=== PATIENT | female | born 1935 | race Caucasian/White ===

== ENCOUNTER 2018-06-25 16:34 | Observation (INO) | payer SELFPAY ==
[2018-06-25 16:35] VITALS: BMI 35.2
[2018-06-25 17:11] LABS: BASO # 0.02 K/mm3 (0.0-2.0); BASO % 0.4 % (0.0-3.0); EOS # 0.1 (0.0-0.7); EOS % 2.7 % (1.5-5.0); GRAN % 36.3 % (50.0-68.0); HEMOGLOBIN 11.4 g/dL (12.0-16.0); LYMPH # 2.7 (1.2-3.4); MEAN CELL VOLUME 88.7 fl (80.0-105.0); MEAN CORPUSCULAR HEMOGLOBIN 28.7 pg (25.0-35.0); MEAN CORPUSCULAR HGB CONC 32.4 g/dl (31.0-37.0); MONO # 0.5 (0.1-0.6); MONO % 9.6 % (1.0-6.0); PLATELET COUNT 173 10^3/uL (120.0-450.0); RBC 3.97 10^6/uL (3.5-6.1); RED CELL DISTRIBUTION WIDTH 13.5 % (11.5-14.5); WHITE BLOOD COUNT 5.2 10^3/uL (4.5-11.0)
[2018-06-25] MEDS ORDERED: Sodium Chloride 0.9% 1,000 ML IV STA (17:13)
[2018-06-25 17:19] LABS: INR 1.13; PROTHROMBIN TIME 12.9 SECONDS (9.4-12.5)
--- NOTE | 2018-06-25 17:53 | RAD ---
Date of service: 06/25/2018 HISTORY: SOB COMPARISON: 08/06/2016 FINDINGS: LUNGS: No active pulmonary disease. PLEURA: No significant pleural effusion identified, no pneumothorax apparent. CARDIOVASCULAR: Atherosclerotic calcifications identified primarily aortic arch. No radiographic findings to suggest acute or significant cardiovascular disease. OSSEOUS STRUCTURES: No significant abnormalities. VISUALIZED UPPER ABDOMEN: Normal. OTHER FINDINGS: None. IMPRESSION: No active disease. No significant interval change compared to the prior examination(s).
[2018-06-25 17:54] VITALS: RESP 18
[2018-06-25 17:58] LABS: ALB/GLOB RATIO 1.1 (1.1-1.8); ALBUMIN 3.5 g/dL (3.0-4.8); CALCIUM 9.8 mg/dL (8.4-10.5)
[2018-06-25 18:12] LABS: TROPONIN I 0.01 ng/mL
[2018-06-25] MEDS ORDERED: Iohexol 350 MG/100 ML VIAL ONE (18:23)
--- NOTE | 2018-06-25 19:18 | CARD ---
APPROVED REPORT Date of service: 06/25/2018 EKG Measurement Heart [id number] <Conclusion> Marked sinus bradycardia Left anterior fascicular block Left ventricular hypertrophy with QRS widening Cannot rule out Septal infarct, age undetermined Abnormal ECG
[2018-06-25 19:20] VITALS: TEMP 98.4
--- NOTE | 2018-06-25 19:48 | ED PDOC ---
Arrival/HPI - General Chief Complaint: Shortness Of Breath - History of Present Illness Narrative History of Present Illness (Text): 06/25/18 19:37 82 year old female with PMH of hypertension presents to the Emergency department with daughter complaining of shortness of breath and chest pain x 30 minutes. Per daughter, pt was at home when she had an episode of lightheadedness, with associated chest pain and difficulty breathing. Describes the CP as substernal and sharp. The lightheadedness subsided within a minute, but the shortness of breath and chest pain continued until arrival to the Emergency Department. Shortness of breath does not change with position. Associated symptoms of nausea and generalized abdominal pain, which daughter states is chronic. Pt did not take any medications for symptoms and did not take her beta manda today. Denies vision changes, headache, syncope, palpitations, diaphoresis, neck pain, jaw pain, cough, nasal congestion, vomiting, urinary symptoms, difficulty speaking or ambulating, weakness, numbness, paresthesias. Past Medical History - Provider Review Nursing Documentation Reviewed: Yes - Infectious Disease Hx of Infectious Diseases: None - Tetanus Immunization Tetanus Immunization: Unknown - Cardiac Hx Hypertension: Yes Other/Comment: cardiac problem - Pulmonary Hx Respiratory Disorders: No - Neurological Hx Neurological Disorder: No - HEENT Hx HEENT Disorder: No - Renal Hx Renal Disorder: No - Endocrine/Metabolic Hx Endocrine Disorders: No - Hematological/Oncological Hx Blood Disorders: No - Integumentary Hx Dermatological Disorder: No - Musculoskeletal/Rheumatological Hx Musculoskeletal Disorders: No - Gastrointestinal Hx Gastrointestinal Disorders: No - Genitourinary/Gynecological Hx Genitourinary Disorders: No - Psychiatric Hx Psychophysiologic Disorder: No Hx Substance Use: No - Surgical History Other/Comment: left breast CA - Anesthesia Hx Anesthesia: No Hx Anesthesia Reactions: No Hx Malignant Hyperthermia: No Family/Social History - Physician Review Nursing Documentation Reviewed: Yes Family/Social History: No Known Family HX Smoking Status: Never Smoked Hx Alcohol Use: No Hx Substance Use: No Allergies/Home Meds Allergies/Adverse Reactions: Allergies No Known Allergies Allergy (Verified 07/12/16 15:52) Home Medications: Home Meds Medication Instructions Recorded Confirmed Bisocard 5 mg PO DAILY 06/11/16 07/12/16 Concor 10 mg PO HS 06/11/16 07/12/16 Coveram 5 mg PO DAILY 06/11/16 07/12/16 Napizol 20 mg pe PO BID 06/11/16 07/12/16 Review of Systems - Physician Review All systems were reviewed & negative as marked: Yes - Review of Systems Constitutional: Normal Eyes: Normal. absent: Vision Changes ENT: Normal Respiratory: SOB. absent: Cough Cardiovascular: Chest Pain, Edema. absent: Palpitations, Syncope Gastrointestinal: Abdominal Pain, Nausea. absent: Stool Changes, Constipation, Diarrhea, Vomiting, Appetite Changes Genitourinary Female: Normal. absent: Dysuria, Frequency Musculoskeletal: Normal. absent: Arthralgias, Back Pain, Neck Pain Skin: Normal Neurological: Dizziness. absent: Headache, Focal Weakness, Gait Changes, Speech Changes, Facial Droop, Disequilibrium, Seizure Hemo/Lymphatic: Normal Psychiatric: Normal Physical Exam Vital Signs Reviewed: Yes (initial evaluation of patient, hypotension and bradycardia 40-50bpm) Vital Signs Temp Pulse Resp BP Pulse Ox 06/25/18 19:19 49 L 18 167/74 H 96 06/25/18 16:56 18 06/25/18 16:35 98.4 F 85 18 86/48 L 97 Temperature: Afebrile Blood Pressure: Hypotensive Pulse: Bradycardic Respiratory Rate: Normal Appearance: Positive for: Non-Toxic, Uncomfortable Pain Distress: Mild Mental Status: Positive for: Alert and Oriented X 3 - Systems Exam Head: Present: Atraumatic, Normocephalic Pupils: Present: PERRL Extroacular Muscles: Present: EOMI Conjunctiva: Present: Normal Mouth: Present: Moist Mucous Membranes Neck: Present: Normal Range of Motion Respiratory/Chest: Present: Clear to Auscultation, Good Air Exchange, Other (patient speaking in full sentences). No: Respiratory Distress, Accessory Muscle Use, Rales, Rhonchi, Tachypneic, Tender to Palpation Cardiovascular: Present: Normal S1, S2, Peripheal Pulses Present, Bradycardic. No: Murmurs Abdomen: Present: Tenderness (generalized), Normal Bowel Sounds, Guarding. No: Distention, Peritoneal Signs Back: Present: Normal Inspection. No: CVA Tenderness, Paraspinal Tenderness Upper Extremity: Present: Normal Inspection, Normal ROM, NORMAL PULSES, Neurova scularly Intact, Capillary Refill < 2s. No: Cyanosis, Edema, Tenderness, Swelling Lower Extremity: Present: Normal Inspection, NORMAL PULSES, Normal ROM, Tenderness (ankle bilaterally over edema), Swelling (bilateral pitting edema, per baseline according to patient), Neurovascularly Intact, Capillary Refill < 2 s. No: Edema, CALF TENDERNESS, Erythema, Deformity, Temperature Abnormalties Neurological: Present: GCS=15, CN II-XII Intact, Speech Normal, Motor Func Grossly Intact, Normal Sensory Function, Gait Normal (ambulating with steady gait) Skin: Present: Warm, Dry, Normal Color. No: Rashes Psychiatric: Present: Alert, Oriented x 3, Normal Insight, Normal Concentration, Normal Affect, Normal Mood. No: Lethargic Medical Decision Making ED Course and Treatment: 06/25/18 16:45 Initial Plan: * EKG * Chest X-ray * Cardiac Iso * D-dimer * BNP * CBC, CMP, Lipase * CT Abd/Pelvis * IVF * ASA EKG: rate 46; sinus bradycardia; normal intervals; no ST elevations or other findings concerning for acute ischemia Read by Dr. Norman, viewed by me. Case discussed with Dr. Norman, who agrees with plan of care. Chest X-ray: no active disease, no change from prior XR in 2016 D-dimer elevated, will get CTA chest to r/o PE. CBC: hgb 11.4, otherwise wnl CMP: BUN 23, Creatinine 1.3, otherwise wnl BNP: 1220 Cardiac Iso: negative Stopped IVF after approximately 600cc 06/25/18 19:00 Patient denies any physical symptoms, would like to be discharged home. Educated patient on purpose of workup and proposed plan for overnight observation. Patien t and family agree with plan and now wish to stay for imaging. Patient able to stand and ambulate without dizziness. Lungs continue to be clear to auscultation. 06/25/18 19:58 Pt endorsed to MARIUM Helms, who will take over patient management and disposition. Patient and family aware of change in care. Pending imaging and disposition. - Lab Interpretations Lab Results: 06/25/18 17:04 06/25/18 17:40 Lab Results 06/25/18 17:40: Sodium 140, Potassium 4.2, Chloride 108 H, Carbon Dioxide 24, Anion Gap 13, BUN 23 H, Creatinine 1.3 H, Est GFR ( Amer) 47, Est GFR (Non-Af Amer) 39, Random Glucose 110, Calcium 9.8, Magnesium 1.9, Total Bilirubin 0.3, AST 22, ALT 17, Alkaline Phosphatase 51, Lactate Dehydrogenase 370, Total Creatine Kinase 35, Troponin I 0.01, NT-Pro-B Natriuret Pep 1220 H, Total Protein 6.7, Albumin 3.5, Globulin 3.3, Albumin/Globulin Ratio 1.1, Lipase 211 06/25/18 17:04: PT 12.9 H, INR 1.13, APTT 27.0, D-Dimer, Quantitative 632 H 06/25/18 17:04: WBC 5.2, RBC 3.97, Hgb 11.4 L, Hct 35.2 L, MCV 88.7, MCH 28.7, MCHC 32.4, RDW 13.5, Plt Count 173, Gran % 36.3 L, Lymph % (Auto) 51.0 H, [place] % (Auto) 9.6 H, Eos % (Auto) 2.7, Baso % (Auto) 0.4, Gran # 1.90, Lymph # (Auto) 2.7, [place] # (Auto) 0.5, Eos # (Auto) 0.1, Baso # (Auto) 0.02 - RAD Interpretation Radiology Orders: 06/25/18 16:59 CXR [CHEST PORTABLE] [RAD] Stat 06/25/18 17:30 ANGIO CHEST PE PROTOCOL [CT] Stat 06/25/18 17:31 ABD & PELVIS IV CONTRAST ONLY [CT] Stat - Medication Orders Current Medication Orders: Discontinued Medications Aspirin (Aspirin) 325 mg PO STAT STA Stop: 06/25/18 17:29 Last Admin: 06/25/18 18:42 Dose: 325 mg Sodium Chloride (Sodium Chloride 0.9%) 1,000 mls @ 999 mls/hr IV .Q1H1M STA Stop: 06/25/18 18:13 Last Admin: 06/25/18 17:41 Dose: 999 mls/hr eMAR Start Stop Document 06/25/18 17:41 EQ (Rec: 06/25/18 17:42 EQ [id number]) Intravenous Solution Start Date 06/25/18 Start Time 17:42 NIHSS Scale (Mitchells) Time Performed: 16:45 - How Severe is the Stoke Baseline Level of Consciousness: 0=Alert LOC to Questions: 0=Both comments correct LOC to commands: 0=Obeys both correctly Best Gaze: 0=Normal Visual: 0=No visual loss Facial: 0=Normal Motor Arm - Left: 0=No drift Motor Arm - Right: 0=No drift Motor Leg - Left: 0=No drift Motor Leg - Right: 0=No drift Limb Ataxia: 0=Absent Sensory: 0=Normal Best Language: 0=No aphasia Dysarthia: 0=Normal articulation Extinction & Inattention (Neglect): 0=Normal, no object Score: 0 Risk Level: No Stroke Risk Disposition/Present on Arrival - Present on Arrival Any Indicators Present on Arrival: No History of DVT/PE: No History of Uncontrolled Diabetes: No Urinary Catheter: No History of Decub. Ulcer: No History Surgical Site Infection Following: None - Disposition Have Diagnosis and Disposition been Completed?: No Diagnosis: Shortness of breath, Chest pain Disposition Time: 20:00 Patient Problems: Current Active Problems Problem Status Onset Chest pain Acute Shortness of breath Acute Condition: STABLE
--- NOTE | 2018-06-25 22:26 | ED PDOC ---
Physical Exam Vital Signs Reviewed: Yes Vital Signs Temp Pulse Resp BP Pulse Ox 06/25/18 20:06 54 L 18 174/78 H 96 06/25/18 19:19 49 L 18 167/74 H 96 06/25/18 16:56 18 06/25/18 16:35 98.4 F 85 18 86/48 L 97 Temperature: Afebrile Blood Pressure: Hypotensive Pulse: Regular Respiratory Rate: Normal Appearance: Positive for: Well-Appearing, Non-Toxic, Comfortable Pain Distress: None Mental Status: Positive for: Alert and Oriented X 3 Medical Decision Making ED Course and Treatment: 06/25/18 22:24 Case was endorsed to me by MARIUM Dawkins at [address] chest and CT A/P. CT Angio reviewed, shows: IMPRESSION: 1. There is motion artifact 2. A pulmonary embolism is not identified 3. There are no parenchymal masses or pleural effusions. No calcified pleural plaques. No infiltrates. 4. The heart is enlarged. 5. There is a curvature of the thoracic spine with convexity towards the left. 6. Degenerative changes of thoracic spine. CT Abd/Pelvis reviewed, shows: IMPRESSION: 1. Atrophic left kidney with 1.9 cm cyst with partially enhancing wall. 2. Several small right renal cysts 3. No hydronephrosis 4. Severely limited study secondary to motion artifact 5. The pancreas is suboptimally visualized 6. Liver and spleen unremarkable. 7. Nonobstructive bowel gas pattern. 8. No free pelvic fluid. 9. The pulmonary bases are well aerated. 10. The heart is enlarged. On reevaluation, patient remains awake and alert, in no acute distress, laying comfortably, has no complaints of CP, SOB or abdominal pain at this time. Diagnostic results d/w the patient's family and plan for observation discussed with them, which they agree to. Case d/w medical liaison and with Dr. Villa, they agree with plan for observation under the hospitalist service. - Lab Interpretations Lab Results: 06/25/18 17:04 06/25/18 17:40 Lab Results 06/25/18 17:40: Sodium 140, Potassium 4.2, Chloride 108 H, Carbon Dioxide 24, Anion Gap 13, BUN 23 H, Creatinine 1.3 H, Est GFR ( Amer) 47, Est GFR (Non-Af Amer) 39, Random Glucose 110, Calcium 9.8, Magnesium 1.9, Total Bilirubin 0.3, AST 22, ALT 17, Alkaline Phosphatase 51, Lactate Dehydrogenase 370, Total Creatine Kinase 35, Troponin I 0.01, NT-Pro-B Natriuret Pep 1220 H, T otal Protein 6.7, Albumin 3.5, Globulin 3.3, Albumin/Globulin Ratio 1.1, Lipase 211 06/25/18 17:04: PT 12.9 H, INR 1.13, APTT 27.0, D-Dimer, Quantitative 632 H 06/25/18 17:04: WBC 5.2, RBC 3.97, Hgb 11.4 L, Hct 35.2 L, MCV 88.7, MCH 28.7, MCHC 32.4, RDW 13.5, Plt Count 173, Gran % 36.3 L, Lymph % (Auto) 51.0 H, [place] % (Auto) 9.6 H, Eos % (Auto) 2.7, Baso % (Auto) 0.4, Gran # 1.90, Lymph # (Auto) 2.7, [place] # (Auto) 0.5, Eos # (Auto) 0.1, Baso # (Auto) 0.02 - RAD Interpretation Radiology Orders: 06/25/18 16:59 CXR [CHEST PORTABLE] [RAD] Stat 06/25/18 17:30 ANGIO CHEST PE PROTOCOL [CT] Stat 06/25/18 17:31 ABD & PELVIS IV CONTRAST ONLY [CT] Stat - Medication Orders Current Medication Orders: Discontinued Medications Aspirin (Aspirin) 325 mg PO STAT STA Stop: 06/25/18 17:29 Last Admin: 06/25/18 18:42 Dose: 325 mg Sodium Chloride (Sodium Chloride 0.9%) 1,000 mls @ 999 mls/hr IV .Q1H1M STA Stop: 06/25/18 18:13 Last Admin: 06/25/18 17:41 Dose: 999 mls/hr eMAR Start Stop Document 06/25/18 17:41 EQ (Rec: 06/25/18 17:42 EQ [id number]) Intravenous Solution Start Date 06/25/18 Start Time 17:42 - PA / MANAGER ASSEMBLY / Resident Statement MD/DO has reviewed & agrees with the documentation as recorded. - Scribe Statement The provider has reviewed the documentation as recorded by the Aide Villarreal All medical record entries made by the Aide were at my direction and personally dictated by me. I have reviewed the chart and agree that the record accurately reflects my personal performance of the history, physical exam, medical decision making, and the department course for this patient. I have also personally directed, reviewed, and agree with the discharge instructions and disposition. Disposition/Present on Arrival - Present on Arrival Any Indicators Present on Arrival: No History of DVT/PE: No History of Uncontrolled Diabetes: No Urinary Catheter: No History of Decub. Ulcer: No History Surgical Site Infection Following: None - Disposition Have Diagnosis and Disposition been Completed?: Yes Diagnosis: Shortness of breath, Chest pain Disposition: HOSPITALIZED Disposition Time: 22:31 Patient Plan: Observation Patient Problems: Current Active Problems Problem Status Onset Chest pain Acute Shortness of breath Acute Condition: STABLE
[2018-06-25 23:35] VITALS: BP 142/92; PULSE 61
[2018-06-25 23:36] VITALS: O2SAT 96
[2018-06-25] MEDS ORDERED: Sodium Chloride 0.9% 1,000 ML IV SCH (23:45)
[2018-06-25] MEDS ORDERED: Nitroglycerin 2% Ointment Foilpak UD TOP STA (23:55)
--- NOTE | 2018-06-26 01:49 | CP.PCM.HP ---
<Luis Carlos Malone - Last Filed: 06/26/18 02:14> History of Present Illness - History of Present Illness History of Present Illness: Luis Carlos Malone PGY1 History and Physical for Dr Villa Pt is a 82 yo female with a PMH of HTN, breast cancer, who presents to the ED complaining of SOB and chest pain which started prior to arrival and lasted about 10mins. Per daughter, pt was at home when she had an episode of lightheadedness, with associated chest pain and difficulty breathing. Pt describes the chest pain as substernal and pressure like 10/10 pain. She did not try anything to help relieve the pain. The lightheadedness subsided within a minute, but the shortness of breath and chest pain continued until arrival to the Emergency Department. Shortness of breath or chest pain does not change with position and came on at rest. Associated symptoms of nausea and generalized abdominal pain, which daughter states is chronic. A 12 point ROS was obtained and added to the HPI where appropriate. PMH: HTN, Left breast cancer, B/L knee arthritis PMH: Surgery for left breast cancer FH: mother at 90. father at 70 SH: Denies smoking, ETOH, drug abuse history PMD: Denies Allergies: Denies Present on Admission - Present on Admission Any Indicators Present on Admission: No Past Patient History - Infectious Disease Hx of Infectious Diseases: None - Tetanus Immunizations Tetanus Immunization: Unknown - Past Medical History & Family History Past Medical History?: Yes - Past Social History Smoking Status: Never Smoked - CARDIAC Hx Hypertension: Yes Other/Comment: cardiac problem - PULMONARY Hx Respiratory Disorders: No - NEUROLOGICAL Hx Neurological Disorder: No - HEENT Hx HEENT Problems: No - RENAL Hx Chronic Kidney Disease: No - ENDOCRINE/METABOLIC Hx Endocrine Disorders: No - HEMATOLOGICAL/ONCOLOGICAL Hx Blood Disorders: No - INTEGUMENTARY Hx Dermatological Problems: No - MUSCULOSKELETAL/RHEUMATOLOGICAL Hx Musculoskeletal Disorders: No - GASTROINTESTINAL Hx Gastrointestinal Disorders: No - GENITOURINARY/GYNECOLOGICAL Hx Genitourinary Disorders: No - PSYCHIATRIC Hx Psychophysiologic Disorder: No Hx Substance Use: No - SURGICAL HISTORY Other/Comment: left breast CA - ANESTHESIA Hx Anesthesia: No Hx Anesthesia Reactions: No Hx Malignant Hyperthermia: No Meds Allergies/Adverse Reactions: Allergies Allergy/AdvReac Type Severity Reaction Status Date / Time No Known Allergies Allergy Verified 07/12/16 15:52 Physical Exam - Constitutional Appears: Non-toxic, No Acute Distress - Head Exam Head Exam: ATRAUMATIC, NORMAL INSPECTION, NORMOCEPHALIC - Eye Exam Eye Exam: EOMI - ENT Exam ENT Exam: Mucous Membranes Moist - Respiratory Exam Respiratory Exam: Clear to Auscultation Bilateral, Respiratory Distress, NORMAL BREATHING PATTERN. absent: Accessory Muscle Use, Wheezes - Cardiovascular Exam Cardiovascular Exam: RRR, +S1, +S2. absent: Diastolic murmur, Systolic Murmur - GI/Abdominal Exam GI & Abdominal Exam: Normal Bowel Sounds, Soft - Extremities Exam Extremities exam: Positive for: full ROM, normal inspection, pedal edema, pedal pulses present. Negative for: calf tenderness - Neurological Exam Neurological exam: Alert, Oriented x3 - Psychiatric Exam Psychiatric exam: Normal Affect, Normal Mood - Skin Skin Exam: Dry, Intact, Warm Results - Vital Signs Recent Vital Signs: Last Vital Signs Temp 98.4 F 06/25/18 16:35 Pulse 61 06/25/18 22:00 Resp 18 06/25/18 22:00 BP 142/92 H 06/25/18 22:00 Pulse Ox 96 06/25/18 22:00 - Labs Result Diagrams: 06/25/18 17:04 06/25/18 17:40 Labs: Laboratory Results - last 24 hr 06/25/18 06/25/18 06/25/18 17:04 17:04 17:40 WBC 5.2 RBC 3.97 Hgb 11.4 L Hct 35.2 L MCV 88.7 MCH 28.7 MCHC 32.4 RDW 13.5 Plt Count 173 Gran % 36.3 L Lymph % (Auto) 51.0 H [place] % (Auto) 9.6 H Eos % (Auto) 2.7 Baso % (Auto) 0.4 Gran # 1.90 Lymph # (Auto) 2.7 [place] # (Auto) 0.5 Eos # (Auto) 0.1 Baso # (Auto) 0.02 PT 12.9 H INR 1.13 APTT 27.0 D-Dimer, Quantitative 632 H Sodium 140 Potassium 4.2 Chloride 108 H Carbon Dioxide 24 Anion Gap 13 BUN 23 H Creatinine 1.3 H Est GFR ( Amer) 47 Est GFR (Non-Af Amer) 39 Random Glucose 110 Calcium 9.8 Magnesium 1.9 Total Bilirubin 0.3 AST 22 ALT 17 Alkaline Phosphatase 51 Lactate Dehydrogenase 370 Total Creatine Kinase 35 Troponin I 0.01 NT-Pro-B Natriuret Pep 1220 H Total Protein 6.7 Albumin 3.5 Globulin 3.3 Albumin/Globulin Ratio 1.1 Lipase 211 Assessment & Plan - Assessment and Plan (Free Text) Assessment: Pt is a 82 yo female with a PMH of HTN, breast cancer, who presents to the ED complaining of SOB and chest pain which started prior to arrival and lasted about 10mins. Per daughter, pt was at home when she had an episode of lighth eadedness, with associated chest pain and difficulty breathing. Plan: Chest Pain, ACS rule out - trop negative x1 - EKG shows no signs of ischemic changes - lipid panel - TSH - ASA - nitro paste 1in - CTAP - Angio chest - ECHO - Cardio consulted Chronic Diarrhea - C diff - fecal fat - stool culture - fecal leukocytes RADHA - acetylcyseine - IVF NS50 Ppx - protonix - NPO Pt left against medical advise. The risks of leaving were explained to the pt. Risks such as , loss of life or limb, [place], stroke, and unknown consequences are possible. As well as not having testing, evaluation and treatment. Pt seen, examined, assessment and plan discussed with Dr Daisy Malone PGY1 - Date & Time Date: 06/26/18 Time: 01:52 <Steve Villa - Last Filed: 06/26/18 06:39> Results - Vital Signs Recent Vital Signs: Last Vital Signs Temp 98.4 F 06/25/18 16:35 Pulse 61 06/25/18 22:00 Resp 18 06/25/18 22:00 BP 142/92 H 06/25/18 22:00 Pulse Ox 96 06/25/18 22:00 - Labs Result Diagrams: 06/25/18 17:04 06/25/18 17:40 Labs: Laboratory Results - last 24 hr 06/25/18 06/25/18 06/25/18 17:04 17:04 17:40 WBC 5.2 RBC 3.97 Hgb 11.4 L Hct 35.2 L MCV 88.7 MCH 28.7 MCHC 32.4 RDW 13.5 Plt Count 173 Gran % 36.3 L Lymph % (Auto) 51.0 H [place] % (Auto) 9.6 H Eos % (Auto) 2.7 Baso % (Auto) 0.4 Gran # 1.90 Lymph # (Auto) 2.7 [place] # (Auto) 0.5 Eos # (Auto) 0.1 Baso # (Auto) 0.02 PT 12.9 H INR 1.13 APTT 27.0 D-Dimer, Quantitative 632 H Sodium 140 Potassium 4.2 Chloride 108 H Carbon Dioxide 24 Anion Gap 13 BUN 23 H Creatinine 1.3 H Est GFR ( Amer) 47 Est GFR (Non-Af Amer) 39 Random Glucose 110 Calcium 9.8 Magnesium 1.9 Total Bilirubin 0.3 AST 22 ALT 17 Alkaline Phosphatase 51 Lactate Dehydrogenase 370 Total Creatine Kinase 35 Troponin I 0.01 NT-Pro-B Natriuret Pep 1220 H Total Protein 6.7 Albumin 3.5 Globulin 3.3 Albumin/Globulin Ratio 1.1 Lipase 211 Attending/Attestation - Attestation I have personally seen and examined this patient.: Yes I have fully participated in the care of the patient.: Yes I have reviewed all pertinent clinical information: Yes
[2018-06-26] MEDS ORDERED: Acetylcysteine 20% Inhal Soln (4ml) PO SCH (08:00)
--- NOTE | 2018-06-26 10:12 | CP.PCM.CON ---
Past Patient History - Infectious Disease Hx of Infectious Diseases: None - Tetanus Immunizations Tetanus Immunization: Unknown - Past Medical History & Family History Past Medical History?: Yes - Past Social History Smoking Status: Never Smoked - CARDIAC Hx Hypertension: Yes Other/Comment: cardiac problem - PULMONARY Hx Respiratory Disorders: No - NEUROLOGICAL Hx Neurological Disorder: No - HEENT Hx HEENT Problems: No - RENAL Hx Chronic Kidney Disease: No - ENDOCRINE/METABOLIC Hx Endocrine Disorders: No - HEMATOLOGICAL/ONCOLOGICAL Hx Blood Disorders: No - INTEGUMENTARY Hx Dermatological Problems: No - MUSCULOSKELETAL/RHEUMATOLOGICAL Hx Musculoskeletal Disorders: No - GASTROINTESTINAL Hx Gastrointestinal Disorders: No - GENITOURINARY/GYNECOLOGICAL Hx Genitourinary Disorders: No - PSYCHIATRIC Hx Psychophysiologic Disorder: No Hx Substance Use: No - SURGICAL HISTORY Other/Comment: left breast CA - ANESTHESIA Hx Anesthesia: No Hx Anesthesia Reactions: No Hx Malignant Hyperthermia: No Meds Allergies/Adverse Reactions: Allergies Allergy/AdvReac Type Severity Reaction Status Date / Time No Known Allergies Allergy Verified 07/12/16 15:52 Results - Vital Signs Recent Vital Signs: Last Vital Signs Temp 98.4 F 06/25/18 16:35 Pulse 61 06/25/18 22:00 Resp 18 06/25/18 22:00 BP 142/92 H 06/25/18 22:00 Pulse Ox 96 06/25/18 22:00 - Labs Result Diagrams: 06/25/18 17:04 06/25/18 17:40 Labs: Laboratory Results - last 24 hr 06/25/18 06/25/18 06/25/18 17:04 17:04 17:40 WBC 5.2 RBC 3.97 Hgb 11.4 L Hct 35.2 L MCV 88.7 MCH 28.7 MCHC 32.4 RDW 13.5 Plt Count 173 Gran % 36.3 L Lymph % (Auto) 51.0 H [place] % (Auto) 9.6 H Eos % (Auto) 2.7 Baso % (Auto) 0.4 Gran # 1.90 Lymph # (Auto) 2.7 [place] # (Auto) 0.5 Eos # (Auto) 0.1 Baso # (Auto) 0.02 PT 12.9 H INR 1.13 APTT 27.0 D-Dimer, Quantitative 632 H Sodium 140 Potassium 4.2 Chloride 108 H Carbon Dioxide 24 Anion Gap 13 BUN 23 H Creatinine 1.3 H Est GFR ( Amer) 47 Est GFR (Non-Af Amer) 39 Random Glucose 110 Calcium 9.8 Magnesium 1.9 Total Bilirubin 0.3 AST 22 ALT 17 Alkaline Phosphatase 51 Lactate Dehydrogenase 370 Total Creatine Kinase 35 Troponin I 0.01 NT-Pro-B Natriuret Pep 1220 H Total Protein 6.7 Albumin 3.5 Globulin 3.3 Albumin/Globulin Ratio 1.1 Lipase 211
--- NOTE | 2018-06-26 11:00 | CT ---
Date of service: 06/25/2018 CTA chest PE protocol Indication: r/o PE Technique: Contiguous axial images were obtained through the chest with intravenous contrast enhancement. Sagittal and coronal reconstructions were generated and reviewed. This CT exam was performed using 1 or more of the following dose reduction techniques: Automated exposure control, adjustment of the MAA and/or kV according to patient size, and/or use of iterative reconstruction technique. IV contrast: 100 cc Omnipaque 350 Radiation dose (DLP): 853.64 MGy-cm. Comparison: Chest x-ray performed 06/25/18 Findings: Examination limited by motion and streak artifact. Limited visualization of the thyroid gland demonstrates approximately 1 cm left lower pole hypodense nodule. The mediastinal and hilar vascular structures appear within normal limits. Cardiomegaly. Enlargement of the pulmonary arteries; correlate for pulmonary arterial hypertension. Atherosclerotic calcifications of the aorta. Coronary artery calcifications. No large central or segmental pulmonary embolus evident. No focal consolidation. No pleural effusion. No pneumothorax. No suspicious pulmonary nodules measuring greater than 5 mm. Limited visualized portions of the upper abdomen: Atrophic left kidney. Left mastectomy. Degenerative changes. Scoliosis. Impression: No large central or segmental pulmonary embolus identified. Cardiomegaly. Enlargement of the pulmonary arteries; correlate for pulmonary arterial hypertension. Additional findings as above. Preliminary impression was provided by [employer].
--- NOTE | 2018-06-26 12:46 | CT ---
Date of service: 06/25/2018 PROCEDURE: CT Abdomen and Pelvis with contrast HISTORY: generalized abdominal pain COMPARISON: CT abdomen and pelvis without contrast performed 08/06/16 TECHNIQUE: Contrast dose: 100 cc Omnipaque 350 Radiation dose: Total exam DLP = 853.64 mGy-cm. This CT exam was performed using one or more of the following dose reduction techniques: Automated exposure control, adjustment of the mA and/or kV according to patient size, and/or use of iterative reconstruction technique. FINDINGS: Examination limited by motion. LOWER THORAX: No visible consolidation, pleural effusion, or pneumothorax. LIVER: Unremarkable. GALLBLADDER AND BILE DUCTS: Gallbladder is absent consistent with cholecystectomy. Surgical clips are not seen. The biliary ductal dilatation stable in appearance, most likely related to post cholecystectomy state. PANCREAS: Fatty atrophy. SPLEEN: Unremarkable. ADRENALS: Unremarkable. KIDNEYS AND URETERS: Atrophic left kidney. Too small to characterize right renal hypodensity; statistically likely cysts. 12 mm left renal hypodense lesion measures approximately 13 HU, possibly with enhancing wall. VASCULATURE: No aortic aneurysm. Atherosclerotic calcifications present. BOWEL: The stomach is nondistended which limits evaluation. Lack of oral contrast limits evaluation for bowel pathology. Bowel loops appear within normal limits of caliber without evidence of obstruction. Diverticulosis without CT evidence of acute diverticulitis. APPENDIX: The appendix is not identified. No secondary signs of acute appendicitis. PERITONEUM: No significant free fluid. No definite free air. LYMPH NODES: No bulky adenopathy identified. BLADDER: Irregularly thick-walled under distended urinary bladder. REPRODUCTIVE: Uterus is absent consistent with hysterectomy. BONES: Multilevel degenerative changes. Osseous demineralization. Scoliosis. OTHER FINDINGS: None. IMPRESSION: Atrophic left kidney. Too small to characterize right renal hypodensity; statistically likely cysts. 12 mm left renal hypodense lesion appears cystic, possibly with enhancing wall. Suggest ultrasound follow-up. Diverticulosis without CT evidence of acute diverticulitis. Irregularly thick-walled under distended urinary bladder. Recommend correlation with urinalysis. Re-identified biliary ductal dilatation. Likely related to post cholecystectomy state. Cholecystectomy clips are not identified. Additional findings as above. Preliminary impression was provided by [employer]. Study marked for PA review.
== END 2018-06-26 01:15 | disposition left against medical advice (07) ==
LOC: ED 16:34 → ERH 22:31 → 3RNO 06-26 00:05
PROVIDERS: ADMIT Internal Medicine; ATTEND Internal Medicine
DX: R07.9 Chest pain, unspecified (principal); R42 Dizziness and giddiness; R06.00 Dyspnea, unspecified; I11.9 Hypertensive heart disease without heart failure; M17.0 Bilateral primary osteoarthritis of knee; N26.1 Atrophy of kidney (terminal); N28.1 Cyst of kidney, acquired; Z85.3 Personal history of malignant neoplasm of breast
CPT/HCPCS: 71045; 71275; 74177; 80053; 82550; 83615; 83690; 83735; 83880; 84484; 85025; 85378; 85610; 85730; 93005; 99285; G0378; J7030; Q9967